=== PATIENT | female | born 1985 | race African-American/Black ===

== ENCOUNTER 2022-07-06 11:17 | Emergency (ER) | payer BC, SELFPAY ==
[2022-07-06 11:34] VITALS: BP 129/91; PULSE 122; RESP 16; TEMP 37.3; O2SAT 100
--- NOTE | 2022-07-06 12:33 | ED.GENADULT ---
HPI - General Adult General Chief complaint: Unspecified Stated complaint: Fall, Left Side Body Pain Time Seen by Provider: 07/06/22 12:33 Source: patient Mode of arrival: ambulatory Limitations: no limitations History of Present Illness HPI narrative: 37y/o female presented for c/o left hip/side pain after injury yesterday. States she fell down 7 steps yesterday, no LOC or head injury. Pt is ambulatory. Denies numbness, tingling or weakness of extremity. Rates pain 10/10. Took ibuprofen for pain. No distress. Patient also presented with bodyaches, cough, headache, for 3 days. Requested flu swab. Hx HTN. Related Data Allergies Allergy/AdvReac Type Severity Reaction Status Date / Time No Known Allergies Allergy Verified 07/06/22 11:49 Review of Systems Review of Systems: CONSTITUTIONAL: Denies body aches, fever, chills EYES: Denies visual changes CARDIOVASCULAR: Denies chest pain, palpitations, or edema. RESPIRATORY: Denies cough or dyspnea. GASTROINTESTINAL: Denies abdominal pain, nausea, vomiting, or diarrhea. SKIN: Denies rash, itching, or wounds. MUSCULOSKELETAL:per HPI NEUROLOGIC: Denies headache, numbness, tingling, or weakness. All systems reviewed & are unremarkable except as noted in HPI and below PMFSH Comments At time of signature, I have reviewed and agree with nursing past medical, surgical, social and family history unless otherwise noted. Please see nursing chart for further information. There is no relevant family history pertinent to the presenting complaint Exam Narrative: GENERAL: Well-appearing, CHEST: Speaks in full sentences. No respiratory distress. HEART: Regular rate and rhythm. Normal and equal peripheral pulses. EXTREMITIES: pain with light palpation to left upper posterior leg, left abd/flank, right paraspinal area of L3-5. Pain to left hip and upper thigh with internal rotation of LLE. Pt tolerated full external rotation of LLE without pain. Pt is ambulatory. LLE has normal strength and sensation, limited range of motion, endorses pain with movement. no edema or ecchymosis, No open wounds or obvious deformity; pulse palpable and equal bilaterally, skin warm, dry, pink. Capillary refill less than 3 seconds. SKIN: Warm, dry, no rash. NEURO: Alert and oriented x3. PSYCH: Normal mood and affect Course Course Emergency Course: Patient is aware of diagnosis, understands and agrees to treatment plan. Anticipatory guidance given. Patient agrees to follow-up as directed and is aware of reasons to seek care at the emergency department. Portions of this record may have been created with voice recognition software Level of Care: Express Care Visit Vital Signs Vital signs: Vital Signs Temperature 99.1 F 07/06/22 11:34 Pulse Rate 122 H 07/06/22 11:34 Respiratory Rate 16 07/06/22 11:34 Blood Pressure 129/91 H 07/06/22 11:34 Pulse Oximetry 100 07/06/22 11:34 Oxygen Delivery Room Air 07/06/22 11:34 Temperature 99.1 F 07/06/22 11:34 Pulse Rate 122 H 07/06/22 11:34 Respiratory Rate 16 07/06/22 11:34 Blood Pressure 129/91 H 07/06/22 11:34 Pulse Oximetry 100 07/06/22 11:34 Oxygen Delivery Room Air 07/06/22 11:34 Reviewed Medical Decision Making MDM Narrative Medical decision making narrative: Imaging not indicated at this time based on PE. flu neg. Advised supportive measures and signs/symptoms to go to the ER. Pt is appropriate for outpt treatment and f/u. Differential Diagnosis Differential Diagnosis: musculoskeletal pain, contusion, fracture, influenza, viral infection Vital Signs Vital Signs: Vital Signs Temperature 99.1 F 07/06/22 11:34 Pulse Rate 122 H 07/06/22 11:34 Respiratory Rate 16 07/06/22 11:34 Blood Pressure 129/91 H 07/06/22 11:34 Pulse Oximetry 100 07/06/22 11:34 Oxygen Delivery Room Air 07/06/22 11:34 Temperature 99.1 F 07/06/22 11:34 Pulse Rate 122 H 07/06/22 11:34 Respiratory Rate 16
== END 2022-07-06 12:56 | disposition home or self-care (01) ==
PROVIDERS: Emergency Provider Nurse Practitioner Family; PCP Family Medicine
DX: M25.552 Pain in left hip (principal); M79.652 Pain in left thigh; R10.9 Unspecified abdominal pain; M54.50 Low back pain, unspecified; I10 Essential (primary) hypertension
CPT/HCPCS: 87804; 99203; G0463

== ENCOUNTER 2022-12-01 10:31 | Emergency (ER) | payer BC, OTHER, SELFPAY ==
--- NOTE | 2022-12-01 10:35 | ED.URI ---
HPI - URI/Sore Throat General Stated Complaint: Sore Throat Time Seen by Provider: 12/01/22 10:55 Source: patient and RN notes reviewed Mode of arrival: ambulatory Limitations: no limitations History of Present Illness HPI Narrative: 37-year-old female presents concern for scratchy throat since Monday. She reports a headache as well. Reports her daughter has strep throat. She denies fever, aches, chills, sweats. MD elicited complaint: sore throat Related Data Home Medications Medication Instructions Recorded Confirmed nifedipine 20 mg capsule 20 mg PO DAILY 12/01/22 12/01/22 Allergies Allergy/AdvReac Type Severity Reaction Status Date / Time No Known Allergies Allergy Verified 12/01/22 11:02 Review of Systems Review of Systems: CONSTITUTIONAL: Denies malaise, chills, sweats, or fever. EYES: Denies visual changes, redness, or discharge. ENT: Denies rhinorrhea, congestion, sinus pain, otalgia. Reports sore throat. CARDIOVASCULAR: Denies chest pain, palpitations, or edema. RESPIRATORY: Reports cough. Denies dyspnea. GASTROINTESTINAL: Denies abdominal pain, nausea, vomiting, diarrhea SKIN: Denies rash or itching. MUSCULOSKELETAL: Denies myalgia. NEUROLOGIC: Reports headache. All systems reviewed & are unremarkable except as noted in HPI and below PMFSH Comments At time of signature, agree with nursing past medical, surgical, social and family history. There is no relevant family history pertinent to the presenting complaint Exam Narrative: GENERAL: Well-appearing, well-nourished, and in no acute distress. HEAD: Normocephalic EYES: PERRLA, conjunctivae clear ENT: Nares clear, turbinates edematous and erythematous, clear discharge. Mucous membranes moist. TM pearly ventura with dull light reflex bilaterally; no tragal tenderness. Oropharynx not erythematous without lesions. Tonsils not enlarged and without exudate, no drooling, no hoarseness, no trismus, uvula midline. NECK: Supple. No lymphadenopathy CHEST: Clear to auscultation, breath sounds equal. No wheezing, rhonchi, rales, or stridor. No respiratory distress, speaks in full sentences. HEART: Regular rate and rhythm. No murmur heard. SKIN: Warm, dry, no rash. NEURO: Alert and oriented x3. PSYCH: Normal mood and affect Course Course Emergency Course: Patient is aware of diagnosis, understands and agrees to treatment plan. Anticipatory guidance given. Patient agrees to follow-up as directed and is aware of reasons to seek care at the emergency department. Portions of this record may have been created with voice recognition software Level of Care: Express Care Visit Vital Signs Vital signs: Reviewed. MDM - URI/Sore Throat MDM Narrative Medical decision making narrative: Differential diagnosis considered: Syed virus, strep pharyngitis, allergic rhinitis, upper respiratory tract infection, sinusitis, rhinosinusitis, nasopharyngitis. viral pharyngitis, otitis media, otitis externa, pneumonia, bronchitis, viral cough syndrome, viral syndrome, and influenza. Exam findings show no acute concerns or changes; patient is non-toxic appearing and is in no distress. Patient is appropriate for outpatient treatment and follow-up. Lab Data Attestation: I reviewed the patient's lab results. Critical Care Time Critical Care Time Critical Care Time: No Discharge Plan Discharge Clinical Impression: Sore throat Patient Disposition: Home, Self-Care Condition: Stable Instructions: Pharyngitis (ED) Additional Instructions: Your rapid strep swab was negative today at [facility]. A throat culture will be sent to the laboratory for further testing. If the test is positive, you will receive a phone call within 48 hours and an appropriate antibiotic will be initiated at that time. Your symptoms are likely due to allergies or a viral illness, which is not treated with antibiotics. These symptoms can be present for up to a few weeks. -Alternate Tylenol and M
[2022-12-01 10:49] VITALS: BP 154/85; PULSE 88; RESP 16; TEMP 36.4; O2SAT 100
== END 2022-12-01 11:14 | disposition home or self-care (01) ==
PROVIDERS: Emergency Provider Nurse Practitioner; PCP Family Medicine
DX: J02.0 Streptococcal pharyngitis (principal); I10 Essential (primary) hypertension
CPT/HCPCS: 87081; 87147; 87880; 99213; G0463

== ENCOUNTER 2023-03-26 08:06 | Emergency (ER) | payer BC, SELFPAY ==
[2023-03-26 08:19] VITALS: BP 160/75; PULSE 81; RESP 16; TEMP 36.3; O2SAT 99
--- NOTE | 2023-03-26 08:51 | ED.GENADULT ---
HPI - General Adult General Chief complaint: Urogenital-Female Stated complaint: vaginal issue Source: patient Mode of arrival: ambulatory Limitations: no limitations History of Present Illness HPI narrative: Patient presents for evaluation of vaginal irritation for the last week. She thought she had a yeast infection so started using Monistat. She discontinued use as she was menstruating. Her symptoms now persist. She reports vaginal pruritis but has not noticed any discharge. No fever, chills, nausea, vomiting, urinary symptoms. She is sexually active with one male partner, never using condoms. She is not aware of him experiencing any symptoms. . She is not using contraception. Related Data Home Medications Medication Instructions Recorded Confirmed nifedipine 20 mg capsule 20 mg PO DAILY 12/01/22 03/26/23 Allergies Allergy/AdvReac Type Severity Reaction Status Date / Time Sulfa (Sulfonamide Allergy Severe Other Verified 03/26/23 08:44 Antibiotics) Review of Systems Review of Systems: CONSTITUTIONAL: Denies fever, chills, or sweats. EYES: Denies visual changes, redness, or discharge. ENT: Denies rhinorrhea, congestion, sore throat, or otalgia. CARDIOVASCULAR: Denies chest pain, palpitations, or edema. RESPIRATORY: Denies cough or dyspnea. GASTROINTESTINAL: Denies abdominal pain, nausea, vomiting, or diarrhea. GENITOURINARY: Reports vaginal irritation and itching. Denies vaginal bleeding/discharge. Denies dysuria or hematuria. SKIN: Denies rash or itching. MUSCULOSKELETAL: Denies back pain, joint pain, or myalgia. NEUROLOGIC: Denies headache, numbness, dizziness, or weakness. PSYCHIATRIC: Denies anxiety or depression. [facility] Past Medical History Medical History No pertinent past medical history Surgical History Surgical History No pertinent past surgical history Family History Family History Mother Family history non-contributory Social History Social History Substance use: never Living arrangements: with family Gender identity (if verbalized by the patient): Female Spiritual care concerns: No Exam Narrative: GENERAL: Well-appearing, well-nourished, and in no acute distress. HEAD: Normocephalic, atraumatic. EYES: PERRLA and EOMI. ENT: Nares clear, no rhinorrhea or epistaxis. Mucous membranes moist. Oropharynx without tonsillar hypertrophy exudate or other lesions. Bilateral TMs pearly ventura nonbulging NECK: Supple. No adenopathy or masses. No carotid bruits or JVD CHEST: Clear to auscultation. No respiratory distress. No wheezes rales or rhonchi HEART: Regular rate and rhythm. No murmur heard. Normal peripheral pulses. ABDOMEN: Soft, nontender, nondistended, normal active bowel sounds. GENITAL: no external genital lesions. No adnexal tenderness. No CMT. Small amount of milky white discharge in vaginal vault EXTREMITIES: Normal range of motion. No edema. SKIN: Warm, dry, no rash. NEURO: No focal deficits. Alert and oriented x3. PSYCH: Normal mood and affect. Course Course Emergency Course: this is a 37-year-old female who presented for evaluation vaginal irritation and itching. We discuss waiting for test results verses treating empirically today. She would like to be treated for gonorrhea, chlamydia, trich, BV and vaginal candidiasis. Therapies ordered as requested. Follow up with primary provider and go to the ER for worsening symptoms. Pt in agreement with plan of care. Level of Care: Express Care Visit Vital Signs Vital signs: Vital Signs Temperature 36.3 C L 03/26/23 08:19 Pulse Rate 81 03/26/23 08:19 Respiratory Rate 16 03/26/23 08:19 Blood Pressure 160/75 H 03/26/23 08:19 Pulse Oximetry 99
[2023-03-26] MEDS: cefTRIAXone 500 MG, LIDOCAINE HCL 1% LOCAL INJ 1 ML IM (08:56)
== END 2023-03-26 09:03 | disposition home or self-care (01) ==
PROVIDERS: Emergency Provider Nurse Practitioner; PCP Family Medicine
DX: N76.0 Acute vaginitis (principal); Z72.51 High risk heterosexual behavior
CPT/HCPCS: 81003; 81025; 87070; 87491; 87591; 87661; 96372; 99214; G0463; J0696

== ENCOUNTER 2024-10-23 11:33 | Outpatient (CLI) | payer BC, SELFPAY ==
--- NOTE | ~2024-10-23 | US_ITS ---
EXAMINATION: US pelvic complete w TV DATE: 10/23/2024 11:58 INDICATION: Hypertrophy of uterus. TECHNIQUE: Multiple transabdominal and transvaginal sonographic images of the pelvis were obtained. COMPARISON: None. FINDINGS: TRANSABDOMINAL ULTRASOUND: The uterus measures 9.1 x 5.5 x 5.5 cm. There is no free fluid in the pelvis. TRANSVAGINAL ULTRASOUND: The endometrial complex measures 11 mm in thickness. There are 1.0 cm and 2.7 cm intramural fibroids. The right ovary measures 2.3 x 2.6 x 1.7 cm. The left ovary measures 1.9 x 2.3 x 2.6 cm. There is no rmal vascular flow in the ovaries. IMPRESSION: 1. Uterine fibroids. Reviewed, dictated and finalized at location A. [facility] IMPRESSION: 1. Uterine fibroids.
== END 2024-10-23 11:34 | disposition home or self-care (01) ==
LOC: GOSHIMG 11:33
PROVIDERS: PCP Obstetrics & Gynecology; Visit Provider Obstetrics & Gynecology
DX: N85.2 Hypertrophy of uterus (principal); N92.0 Excessive and frequent menstruation with regular cycle; D25.9 Leiomyoma of uterus, unspecified
CPT/HCPCS: 76830; 76856

== ENCOUNTER 2025-03-17 15:00 | Outpatient (CLI) | payer BC, SELFPAY ==
--- NOTE | ~2025-03-17 | MM_ITS ---
EXAMINATION: MM screening [facility] BI w fabiano INDICATION: Asymptomatic, referred for screening mammogram COMPARISON: None available TECHNIQUE: Digital Breast Tomosynthesis CC, MLO views of Both breasts were obtained with computer-ai ded detection to assist in interpretation of the study. FINDINGS: The breasts are heterogeneously dense, which may obscure small masses. There are 2 adjacent masses in the outer central and retroareolar right breast at middle depth cente red at 3.2 cm and 3.4 cm posterior to the nipple respectively. Elsewhere, there are no mammographic features of malignancy. IMPRESSION: 1. Right breast masses. 2. No evidence of malignancy in the Left breast. RECOMMENDATION: Right breast Diagnostic mammogram with true lateral, appropriate spot compression views and an ultras ound. BI-RADS Category 0: Incomplete: Needs additional imaging evaluation. Reviewed, dictated and finalized at location B. IMPRESSION: 1. Right breast masses. 2. No evidence of malignancy in the Left breast. RECOMMENDATION: Right breast Diagnostic mammogram with true lateral, appropriate spot compressi on views and an ultrasound. BI-RADS Category 0: Incomplete: Needs additional imaging evaluation.
--- OUTSIDE RECORDS SUMMARY | 2025-03-17 15:04 | XMS_ITS | Clinical Summary ---
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 Name Role Phone Unavailable Primary Care Provider Unavailabl e Social History Tobacco Use Types Packs/Day Years Used Date Smoking Tobacco: Never Assessed Comments Unknown Sex and Gender Information Value Date Recorded Sex Assigned at Not on file Legal Sex Female 10:17 AM [employer] Gender Identity Not on file Sexual Orientation Not on file Plan of Treatment Health Maintenance Due Date Last Done Comments Hepatitis C Virus (HCV) Screening 1984 Pap Smear 2005 Cervical Cancer Screening (CCS) 2014 HPV/Cotest 2014 Influenza Immunization (#1) 2024 SARS-COV-2 Immunization ( season) 2024 11/01/2020 Discussion re Starting/Frequency of Mammograms 2024 Respiratory Syncytial Virus (RSV) Immunization (Adult) (1 - 1-dose 75+ series) 2059 Hepatitis B Immunization Completed 002, 03/11/2002, 02/06/2002 DTaP/Tdap/Td Immunization Discontinued 2015, 08/28/2015, 04/15/1994, Additional history exists TdaP Immunization Completed 12/07/2015, 08/28/2015 Meningococcal Immunization (ACWY) Aged Out No longer eligible based on patient's age to complete this topic Pneumococcal Immunization Combined Aged Out No longer eligible based on patient's age to complete this topic Rotavirus Immunization Aged Out No lo nger eligible based on patient's age to complete this topic
--- OUTSIDE RECORDS SUMMARY | 2025-03-17 15:04 | XMS_ITS | Clinical Summary ---
Author Organization [facility] Address [address] [place] [address] Care Team Providers Care Roguer Name Role Phone Tasha Iverson DO Unavailable [phone] Teresita Conrad MCNEAL MD Primary Care Prov ider Allergies Active Allergy Reactions Criticality Noted Date Comments Sulfur Hives 07/12/2024 Medications lisinopril (PRINIVIL) 20 MG tabletIndications :Essential hypertension TAKE 1 TABLET(20 MG) BY MOUTH DAILY 90 tablet 3 09/26/2024 Active ferrous sulfate, 65 mg elemental, 325 (65 FE) MG tablet Take 1 tablet (325 mg total) by mouth daily with breakfast. Take 650 every other day Active Active Problems Problem Noted Date Diagnosed Date Anemia 09/05/2024 Assessment & Plan (09/11/2024 8:13 AM ACCOUNTING SYSTEM EXPERT): Chronic. Improving. Recent hospitalization for anemia, asymptomatic. Status post 1 PRBC. Status post IV iron infusion. CT A/P with no acute findings. DC with iron every other day X 3 days. -Reports no gross bleeding or symptoms of lightheadedness/dizziness. -Medications: Iron 325 mg p.o. every other day -Patient reports not having any constipation -Gynecology appointment 10/01/2024 -Previously discussed monthly periods, bleeds for 4-7 days, occasionally heavy -Discussed with patient consideration for GI referral as well. However, patient would like to start with gynecology -Repeat CBC today to ensure no drop in hemoglobin -Follow-up in 3 months for repeating CBC and iron panel Heart murmur 03/09/2023 Assessment & Plan (07/12/2024 11:20 AM ACCOUNTING SYSTEM EXPERT): Originally found by stitch separator. Not currently established with cardiology -Of of the echo completed on 04/05/2023 with EF 50-55%, borderline concentric left ventricular hypertrophy, mild mitral and tricuspid regurgitation -PE today with clear bilateral lung sounds, trace bilateral lower extremity edema, and grade 2 systolic murmur -Will work on risk stratification, see above Essential hypertension 07/29/2020 Assessment & Plan (09/11/2024 8:17 AM ACCOUNTING SYSTEM EXPERT): Chronic. Controlled. Asymptomatic at this time. History of preeclampsia in 2015. Started on nifedipine at that time. Reported nifedipine XL causes leg cramps and on previous physical exam bilateral trace pitting edema, which has since resolved since d/c. - BP: 138/82 - Goal of < 140/90 per JNC8 guidelines - Current medications: Lisinopril 20 mg p.o. daily -Tubes ligation in 2019 - Discussed DASH diet / Na reduction - Discussed increasing physical activity, averaging 150 min / week of moderate exercise - Continued to encourage moderation of ETOH use and smoking cessation - Discussed that hypertension increases risk for cardiovascular events, renal impairment, and stroke - Risk stratification: BP Uncontrolled, hx of HLD not on any medication at this time, Body mass index is 29.27 kg/m ., ex smoker Assessment & Plan (07/12/2024 11:17 AM ACCOUNTING SYSTEM EXPERT): Chronic. Uncontrolled. Asymptomatic at this time. History of preeclampsia in 2015. Started on nifedipine at that time. Of note, since PCP left was out of medication for 1 month until getting refills from [facility]. Patient reports that the medication dose was increased on 03/2024. - BP: (!) 150/70, with a repeat of 150/70 - Goal of < 140/90 per JNC8 guidelines - Current medications: Nifedipine XL 60 mg p.o. daily - Discussed DASH diet / Na reduction - Discussed increasing physical activity, averaging 150 min / week of moderate exercise - Continued to encourage moderation of ETOH use and smoking cessation - Discussed that hypertension increases risk for cardiovascular events, renal impairment, and stroke - Risk stratification: BP Uncontrolled, hx of HLD not on any medication at this time, Body mass index is 28.86 kg/m ., ex smoker -She is a patient changing medication because per patient, nifedipine XL causes leg cramps and on physical exam bilateral trace pitting edema -Start lisinopril 20 mg p.o. daily -Labs ordered: BMP, albumin creatinine ratio - F/u in 4 weeks for blood pressure recheck Hyperlipidemia, unspecified hyperlipidemia type 07/29/2020 Assessment & Plan (07/12/2024 11:18 AM ACCOUNTING SYSTEM EXPERT): Chronic. Controlled. ASCVD risk score of 1%. No history of DM, MT, or stroke. - Last lipid panel 2022: TChol 176, triglycerides 62, HDL 58, LDL 104 - Current medication: None - D/w pt importance of reducing carbohydrates and total calories - D/w pt use of 'myfitnesspal' and 'myplate' for assistance in decreasing total caloric intake. - Recommended at least 150 min / week of moderate intensity exercise - Avoidance of regular soda, juices, and alcohol. Cautious of sugar in coffee and teas. -Repeat lipid panel Resolved Problems Problem Noted Date Diagnosed Date Resolved Date Preventative health care 09/22/2021 Preventative health care 07/29/2020 Encounters Date Type Department Care Team Description 01/17/2025 9:47 PM CDT - 01/18/2025 12:49 AM CDT Emergency [facility] [place] [address] Ray Villegas MD Abdominal Pain Discharge Disposition: Home or Self Care (Routine Discharge) 01/17/2025 Travel 01/08/2025 7:59 AM CDT - 01/08/2025 11:59 PM CDT Hospital Encounter [facility] [place] [address] Conrad Aldana MD Discharge Disposition: Home or Self Care (Routine Discharge) 01/08/2025 7:20 AM CDT Office Visit [facility] - [place], [address] [place] [phone] Conrad Aldana MD Follow Up (Patient states no new concerns ) 01/08/2025 Results Follow-Up [facility] - [place] [address], [address] [place] [phone] Conrad Aldana MD FERRITIN, IRON SAT PANEL (IRON,IBC,%SAT), CBC W/DIFF AUTOMATED 01/08/2025 Orders Only [facility] [address] [place] [address] Conrad Aldana MD 01/08/2025 Travel from Last 3 Months Immunizations Immunization Administration Dates Next Due Dtp 04/15/1994, 7,03/12/1985,1984,1984 HPV 1984 Hepatitis B Pediatric 08/12/2002,03/11/2002,01/26 MMR 06/04/1993,09/20/1985 Opv 04/15/1994, 7,03/12/1985,1984,1984 PFIZER COVID-19 (ORIGINAL FORMULATION, PURPLE CAP) mRNA, LNP-S, PF, 30 MCG/0.3 ML DOSE 08/22/2021 Tdap (Generic) 12/07/2015,08/28/2015,11/22/2011 Family History Medical History Relation Comments Diabetes Father Hypertension Father HYPOTHYROIDISM Mother Hypertension Mother Relation Status Comments Father Mother Social History Tobacco Use Types Packs/Day Years Used Date Smoking Tobacco: Former Cigars Passive Smoke Exposure: Past Smokeless Tobacco: Never Tobacco Cessation:Counseling Given: No Comments:2 DAILY X 6 YEARS Alcohol Use Standard Drinks/Week Comments Yes 0 (1 standard drink = 0.6 oz pur e alcohol) ocass [facility] Utilities Answer Date Recorded In the past 12 months has e electric, gas, oil, or water company threatened to shut off services in your home? No 09/06/2024 Humiliation, Afraid, Rape, and Kick questionnair e Answer Date Recorded Within the last year, have y ou been afraid of your partner or ex-partner? No 09/06/2024 Within the last year, have y ou been humiliated or emotionally abused in other ways by your partner or ex-partner? No Within the last year, have y ou been kicked, hit, slapped, or otherwise physically hurt by your partner or ex-partner? No 09/06/2024 Within the last year, have y ou been raped or forced to have any kind of sexual activity by your partner or ex-partner? No 09/06/2024 Social Connection and Isolat ion Panel [NHANES] Answer Date Recorded In a typical week, how many times do you talk on the phone with family, friends, or neighbors? More than three times a week 09/06/2024 How often do you get togethe r with friends or relatives? More than three times a week 09/06/2024 How often do you attend chur or zoroastrian services? More than 4 times per year 09/06/2024 Do you belong to any clubs o r organizations such as synagogue groups, unions, fraternal or athletic groups, or school groups? Yes 09/06/2024 How often do you attend meet ings of the clubs or organizations you belong to? More than 4 times per year 09/06/2024 Are you , , di vorced, , never , or living with a partner? Never 09/06/2024 Overall Financial Resource Strain (CARDIA) Answe r Date Recorded How hard is it for you to pa y for the very basics like food, housing, medical care, and heating? Not hard at all 09/06/2024 PHQ-2 Answer Date Recorded Patient Health Questionnaire-2 Score 0 01/08/2025 [employer] Occupat ional Health - Occupational Stress Questionnaire Answer Date Recorded Do you feel stress - tense, restless, nervous, or anxious, or unable to sleep at night because your mind is troubled all the time - these days? Not at all 09/06/2024 Hunger Vital Sign Answer Date Recorded Within the past 12 months, y ou worried that your food would run out before you got the money to buy more. Never true 09/06/19 25 Within the past 12 months, t he food you bought just didn't last and you didn't have money to get more. Never true 09/06/2024 PRAPARE - Transportation Answer Date Re corded In the past 12 months, has l ack of transportation kept you from medical appointments or from getting medications? No 08/28 In the past 12 months, has l ack of transportation kept you from meetings, work, or from getting things needed for daily living? No 09/06/2024 Housing Stability Vital Sign Answer Rolf e Recorded In the last 12 months, was t here a time when you were not able to pay the mortgage or rent on time? Yes 09/06/2024 In the past 12 months, how m any times have you moved where you were living? 0 09/06/2024 At any time in the past 12 m [facility], were you homeless or living in a senior care (including now)? No 09/06/2024 Comments No Sex and Gender Information Value Date Recorded Sex Assigned at Not on file Legal Sex Female 7:59 PM CDT Gender Identity Not on file Sexual Orientation Not on file Occupation Industry Job Start Date Job End Date Not on file Not on file Not on file Not on file Last Filed Vital Signs Vital Sign Reading Time Taken Comments Blood Pressure 121/82 01/18/2025 12:00 AM CDT Pulse 74 01/18/2025 12:46 AM CDT Temperature 37.2 C (98.9 F) 01/18/2025 12:39 AM CDT Respiratory Rate 18 01/18/2025 12:39 AM CDT Oxygen Saturation 99% 01/18/2025 12:46 AM CDT Inhaled Oxygen Concentration - - Weight 74.8 kg (165 lb) 01/17/2025 9:34 PM CDT Height 167.6 cm (5' 6) 01/17/2025 9:34 PM CDT Body Mass Index 26.63 01/17/2025 9:34 PM CDT Plan of Treatment Upcoming Encounters Date Type Department Care Team (Late st Contact Info) Description 07/11/2025 7:20 AM ACCOUNTING SYSTEM EXPERT Office Visit [facility] - [place] [address] , [address] [place] [address] Teresita VII, Conrad Jackson MD [address] [place] [address], [address] [address] Health Maintenance Due Date Last Done Comments Cervical Cancer Screening Pap Smear (Age 30 to 64) Every 3 Years 1984 Hepatitis C 2002 HPV Vaccines (1 - 3-dose SCDM series) 2011 1984 Cervical Cancer Screening Pap with HPV Testing (Age 30 to 64) Every 5 Years 2014 Cervical Cancer Screening with HPV 2014 COVID-19 Vaccine ( season) 2024 08/22/2021, 11/01/2020 Mammogram Screening 2024 Annual Physical 07/12/2025 07/12/2024, 02/25, 09/22/2021, Additional history exists DTaP, Tdap and Td Vaccines (5 - Td or Tdap) 12/06/2025 12/07/2015, 08/28/2015, 11/22/2011, Additional history exists Hepatitis B Vaccines Completed 08/12/2002, 03/11/2002, 02/06/2002 PHQ-2 (Physician [place]) Completed 01/08/2025 Meningococcal B Vaccine Aged Out No l onger eligible based on patient's age to complete this topic Meningococcal Vaccine Aged Out No she jessica eligible based on patient's age to complete this topic Pneumococcal Vaccine: Pediatrics (0 to 5 Years) and At-Risk Patients (6 to 49 Years) Aged Out No longer eligible based on patient's age to complete this topic RSV Immunizations Under 20 Months Aged Out No longer eligible based on patient's age to complete this topic Procedures Procedure Name Priority Date/Time Associated Diagnosis Comments URINE BACTERIA CULTURE Routine 11:20 PM CDT HC URINALYSIS AUTO W/O MICRO STAT 01/17/2025 11:20 PM CDT ELECTROCARDIOGRAM REPORT Routine 025 11:01 PM CDT ECG 12-LEAD Routine 01/17/2025 10:56 PM CDT XR CHEST PORTABLE STAT 01/17/2025 10: [address] ABD+PEL W CON STAT 01/17/2025 10:1 8 PM CDT CHORIONIC GONADOTROPIN HCG QL STAT 01/17/2025 10:00 PM CDT LACTIC ACID W REFLEX (SEPSIS) STAT 01/17/2025 10:00 PM CDT CK (CPK) STAT 01/17/2025 10:00 PM CDT MAGNESIUM STAT 01/17/2025 10:00 PM CDT LIPASE STAT 01/17/2025 10:00 PM CDT COMPREHENSIVE METABOLIC PANEL STAT 01/17/2025 10:00 PM CDT CBC W/DIFF AUTOMATED STAT 01/17/2025 10:00 PM CDT CORONAVIRUS (COVID 19) STAT 9:59 PM CDT TROPONIN, QUANT Routine 01/17/2025 9:59 PM CDT INFLUENZA A & B STAT 01/17/2025 9:57 PM CDT HC URINALYSIS AUTO W/O MICRO STAT 01/17/2025 9:57 PM CDT POCT URINE (BACK OFFICE) STAT 01/17/2025 9:54 PM CDT CBC W/DIFF AUTOMATED Routine 01/08/2025 8:08 AM CDT Iron deficiency anemia, unspecified iron deficiency anemia type IRON SAT PANEL (IRON,IBC,%SAT) Routine 01/08/2025 8:08 AM CDT Iron deficiency anemia, unspecified iron deficiency anemia type FERRITIN Routine 01/08/2025 8:08 AM CDT Iron deficiency anemia, unspecified iron deficiency anemia type from Last 3 Months Results * URINALYSIS (01/17/2025 11:20 PM CDT) Only the most recent of2 resultswithin the time period is included. SPECIMEN TYPE URINE STRAIGHT CATH 01/17/2025 11:21 PM CDT [facility] COLOR (U) LIGHT YELLOW 01/17/2025 11:35 PM CDT [facility] TRANSPARENCY CLEAR 01/17/2025 11:35 PM CDT [facility] SPECIFIC GRAVITY (U) 1.022 1.001 - 1.030 01/17/2025 11:35 PM CDT [facility] U PH 7.0 5.0 - 9.0 01/17/2025 11:35 PM CDT [facility] LEUKOCYTES (U) NEGATIVE NEGATIVE 01/17/2025 11:35 PM CDT [facility] NITRITES NEGATIVE NEGATIVE 01/17/2025 11:35 PM CDT [facility] PROTEIN RANDOM (U) NEGATIVE <30 MG/DL 01/17/2025 11:35 PM CDT [facility] GLUCOSE (U) NORMAL NORMAL MG/DL 01/17/2025 11:35 PM CDT [facility] KETONES MG/DL (U) NEGATIVE NEGATIVE MG/DL 01/17/2025 11:35 PM CDT [facility] UROBILINOGEN NORMAL NORMAL MG/DL 01/17/2025 11:35 PM CDT [facility] BILIRUBIN (U) NEGATIVE NEGATIVE MG/DL 01/17/2025 11:35 PM CDT [facility] BLOOD (U) NEGATIVE NEGATIVE 01/17/2025 11:35 PM CDT [facility] MUCUS RARE /LPF 01/17/2025 11:35 PM CDT [facility] RBC/HPF 1 <6 /HPF 01/17/2025 11:35 PM CDT [facility] SQUAMOUS EPITHELIALS RARE /HPF 01/17/2025 11:35 PM CDT [facility] URINE, STRAIGHT CATH 01/17/2025 11:20 PM CDT us Ray Villegas MD URINE ORDERABLES Final Result Performing Organization Address [facility] Co de Phone Number [facility] [address] [place] [address], [place] [phone] * CULTURE URINE (01/17/2025 11:20 PM CDT) SPEC DESCRIPTION URINE STRAIGHT CATH 01/17/2025 11:47 PM CDT [facility] SPECIAL REQUESTS NO SPECIAL REQUEST 01/17/2025 11:47 PM CDT [facility] CULTURE RESULT NO GROWTH 2 DAYS 01/20/2025 8:26 AM CDT [facility] URINE SPECIMEN OBTAINED BY SINGLE CATHETERIZATION OF URINARY BLADDER / Unknown 01/17/2025 11:20 PM CDT 01/18/2025 2:35 AM CDT us Ray Villegas MD MICROBIOLOGY - GENERAL ORDERAB LES Final Result Performing Organization Address City/[facility]/ZIP Co de Phone Number [facility] [address] [place] [address], [place] [phone] * EKG Reading (01/17/2025 11:01 PM CDT) Narrative Ray Villegas MD - 01/17/2025 11:01 PM CDT Ray Villegas MD 01/17/2025 11:49 PM EKG Reading Date/Time: 01/17/2025 11:01 PM Performed by: Ray Villegas MD Authorized by: Ray Villegas MD Interpreted by ED physician Comparison: compared with previous ECG from 04/16/2022 Rhythm: sinus rhythm Rate: normal BPM: 71 Comments: Normal sinus rhythm. Heart rate 71. Normal axis Norval normal QRS nonspecific ST-T wave changes. Compared to EKG from 04/16/2022 Rhythm strip are interpreted 2256 Normal sinus rhythm. Heart rate 71. No ectopy us Ray Villegas MD [facility] Final Result * ECG 12 lead (01/17/2025 10:56 PM CDT) 01/17/2025 10:5 6 PM CDT Narrative [facility] - 01/18/2025 8:24 AM CDT [facility] [address] Test Date: 2025-01-17 Pat Name: MARGARITA HUERTA Department: 41 Room: Gender: Female Quiller Hand: [id number] : 1985 Requested By: LAKIA KAPOOR Order Number: [id number] Reading MD: Edgar Ventura Measurements Intervals [place] Rate: 71 P: 54 SC: 191 QRS: 29 QRSD: 73 T: 31 QT: 382 QTc: 415 Interpretive Statements SINUS RHYTHM Compared to ECG 04/16/2022 09:14:37 No significant changes Other ischemic changes, not STEMI Preliminary EKG Interpretation by Ray Villegas M.D. Procedure Note Edgar Ventura MD - 01/18/2025 [facility] [address] [place] [address] Test Date: 2025-01-17 Pat Name: MARGARITA HUERTA Department: 41 Room: Gender: Female Quiller Hand: [id number] : 1985 Requested By: LAKIA KAPOOR Order Number: [id number] Reading MD: Edgar Ventura Measurements Intervals [place] Rate: 71 P: 54 SC: 191 QRS: 29 QRSD: 73 T: 31 QT: 382 QTc: 415 Interpretive Statements SINUS RHYTHM Compared to ECG 04/16/2022 09:14:37 No significant changes Other ischemic changes, not STEMI Preliminary EKG Interpretation by Ray Villegas M.D. us Lakia Kapoor SPARERIBS TRIMMER ECG ORDERABLES Final Result [facility] RAD * XR CHEST PORTABLE (01/17/2025 10:27 PM CDT) Anatomical Region Laterality Modality Chest Radiographic Natividad ging 01/17/2025 10:3 2 PM CDT Impressions 01/17/2025 10:32 PM CDT IMPRESSION: ======== 1. No acute cardiopulmonary findings. Referred By: Interpreted By: Ray Spangler MD, 01/17/2025 10:32 PM Narrative 01/17/2025 10:32 PM CDT [address] [address] Examination: Chest x-ray 1 view Exam Date/Time: 01/17/2025 10:08 PM Reason For Exam: weakness/cough Diffuse pain Comparison: None Technique: Single AP view of the chest was obtained. Findings: Heart size is within normal limits. Pulmonary vasculature is within normal limits. There is no large pleural effusion or pneumothorax. There is no focal infiltrate or consolidative change. ======== Procedure Note Ray Spangler MD - 01/17/[address] [address] Examination: Chest x-ray 1 view Exam Date/Time: 01/17/2025 10:08 PM Reason For Exam: weakness/cough Diffuse pain Comparison: None Technique: Single AP view of the chest was obtained. Findings: Heart size is within normal limits. Pulmonary vasculature iswithin normal limits. There is no large pleural effusion or pneumothorax.There is no focal infiltrate or consolidative change. ======== IMPRESSION: ======== 1. No acute cardiopulmonary findings. Referred By: Interpreted By: Ray Spangler MD, 01/17/2025 10:32 PM Ray Villegas MD GENERAL IMAGING Final Result * CT ABD+PEL W IV CON ONLY (01/17/2025 10:18 PM CDT) Anatomical Region Laterality Modality Abdomen Computed Tomogra phy 01/17/2025 10:2 1 PM CDT Impressions 01/17/2025 10:24 PM CDT IMPRESSION: ===== 1. Subtle heterogeneous enhancement of some areas of left renal cortex compared to the right. Infection is main consideration. Clinical correlation with urinalysis recommended. Follow-up recommended after appropriate course of therapy to ensure resolution and exclude other etiologies. 2. Punctate nonobstructing right renal pelvic calcification. 3. Tiny umbilical hernia contains only fat. Referred By: Interpreted By: Ray Spangler MD, 01/17/2025 10:21 PM Narrative 01/17/2025 10:24 PM CDT [address] [address] EXAMINATION: CT Abdomen and Pelvis with contrast EXAM DATE/TIME: 01/17/2025 10:07 PM REASON FOR EXAM: abdominal pain Abdominal pain, nausea, decreased appetite since Monday COMPARISON: CT abdomen and pelvis 09/06/2024 TECHNIQUE: Axial CT images of the abdomen and pelvis are obtained following uneventful intravenous administration of 100 cc Isovue-370. Subsequent coronal and sagittal reformatted sequences are created for evaluation. A dose lowering technique was used for this procedure, which may include, but is not limited to, dose reduction technique, automated exposure control, iterative reconstruction, ALARA (As Low As Reasonably Achievable), or Image Gently techniques. FINDINGS: Minimal atelectasis in the posterior left lung base. Lung bases otherwise clear. No pleural effusion. Heart size normal. No pericardial effusion. The liver and spleen are normal in size and surface contour. No abnormal enhancing hepatic lesions. Bladder is contracted. Pancreas and adrenal glands unremarkable. Kidneys demonstrate symmetric uptake of contrast agent. Subtle asymmetric heterogeneous enhancement of some areas of left renal cortex compared to the right. No perinephric stranding or fluid collections. Infection is a consideration. There is a punctate nonobstructing right renal pelvic calcification. Abdominal aorta normal in caliber throughout. The bowel is normal in caliber. No evidence of bowel obstruction. Appendix normal. Tiny umbilical hernia contains only fat. Urinary bladder is decompressed with smooth borders. No free fluid in the pelvis. Uterus and adnexal structures have unremarkable CT appearance. Bone level imaging shows no destructive osseous lesions. ===== Procedure Note Ray Spangler MD - 01/17/[address] [address] EXAMINATION: CT Abdomen and Pelvis with contrast EXAM DATE/TIME: 01/17/2025 10:07 PM REASON FOR EXAM: abdominal pain Abdominal pain, nausea, decreased appetite since Monday COMPARISON: CT abdomen and pelvis 09/06/2024 TECHNIQUE: Axial CT images of the abdomen and pelvis are obtainedfollowing uneventful intravenous administration of 100 cc Isovue-370.Subsequent coronal and sagittal reformatted sequences are created forevaluation. A dose lowering technique was used for this procedure, whichmay include, but is not limited to, dose reduction technique, automatedexposure control, iterative reconstruction, ALARA (As Low As ReasonablyAchievable), or Image Gently techniques. FINDINGS: Minimal atelectasis in the posterior left lung base. Lung basesotherwise clear. No pleural effusion. Heart size normal. No pericardialeffusion. The liver and spleen are normal in size and surface contour. No abnormalenhancing hepatic lesions. Bladder is contracted. Pancreas and adrenalglands unremarkable. Kidneys demonstrate symmetric uptake of contrastagent. Subtle asymmetric heterogeneous enhancement of some areas of leftrenal cortex compared to the right. No perinephric stranding or fluidcollections. Infection is a consideration. There is a punctatenonobstructing right renal pelvic calcification. Abdominal aorta normalin caliber throughout. The bowel is normal in caliber. No evidence ofbowel obstruction. Appendix normal. Tiny umbilical hernia contains onlyfat. Urinary bladder is decompressed with smooth borders. No free fluidin the pelvis. Uterus and adnexal structures have unremarkable CTappearance. Bone level imaging shows no destructive osseous lesions. ===== IMPRESSION: ===== 1. Subtle heterogeneous enhancement of some areas of left renal cortexcompared to the right. Infection is main consideration. Clinicalcorrelation with urinalysis recommended. Follow-up recommended afterappropriate course of therapy to ensure resolution and exclude otheretiologies. 2. Punctate nonobstructing right renal pelvic calcification. 3. Tiny umbilical hernia contains only fat. Referred By: Interpreted By: Ray Spangler MD, 01/17/2025 10:21 PM Lakia Kapoor NP CT Final Result * LACTIC ACID W REFLEX (SEPSIS) (01/17/2025 10:00 PM CDT) LACTIC ACID VENOUS 0.6 0.4 - 2.0 MMOL/L 01/17/2025 10:25 PM CDT [facility] 01/17/2025 10:0 0 PM CDT Lakia Kapoor NP LABORATORY Final Result [facility] [address] [place] [address], [place] [phone] * (ABNORMAL) COMPREHENSIVE METABOLIC PANEL (01/17/2025 10:00 PM CDT) [facility] GLUCOSE 103(H) 70 - 99 MG/DL 01/17/2025 10:25 PM CDT [facility] BUN 9 7 - 18 MG/DL 01/17/2025 10:25 PM CDT [facility] CREATININE S/P/B 0.89 0.55 - 1.02 MG/DL 01/17/2025 10:25 PM CDT [facility] SODIUM S/P/B 136 136 - 145 MMOL/L 01/17/2025 10:25 PM CDT [facility] POTASSIUM S/P/B 3.6 3.5 - 5.1 MMOL/L 01/17/2025 10:25 PM CDT [facility] CHLORIDE S/P/B 106 97 - 115 MMOL/L 01/17/2025 10:25 PM CDT [facility] CO2 24.3 21 - 32 MMOL/L 01/17/2025 10:25 PM CDT [facility] CALCIUM S/P/B 8.9 8.5 - 10.1 MG/DL 01/17/2025 10:25 PM CDT [facility] BILIRUBIN TOTAL S/P/B 0.4 0.2 - 1.2 MG/DL 01/17/2025 10:25 PM CDT [facility] Comment: THIS ASSAY IS NOT RECOMMENDED FOR PATIENTS UNDERGOING TREATMENT WITH ELTROMBOPAG DUE TO THE POTENTIAL FOR FALSELY ELEVATED RESULTS. TOTAL PROTEIN S/P/B 7.4 6.4 - 8.2 G/DL 01/17/2025 10:25 PM CDT [facility] ALBUMIN S/P/B 3.3(L) 3.4 - 5.0 G/DL 01/17/2025 10:25 PM CDT [facility] AST 10(L) 15 - 37 U/L 01/17/2025 10:25 PM CDT [facility] ALT 8(L) 14 - 55 U/L 01/17/2025 10:25 PM CDT [facility] ALKALINE PHOSPHATASE S/P/B 61 50 - 136 U/L 01/17/2025 10:25 PM CDT [facility] ANION GAP 5.7 2 - 10 MMOL/L 01/17/2025 10:25 PM CDT [facility] BUN CREATININE RATIO 10.1 6 - 26 01/17/2025 10:25 PM CDT [facility] A/G RATIO 0.8(L) 1.0 - 2.0 RATIO 01/17/2025 10:25 PM CDT [facility] GFR ESTIMATE 84(L) >90 ML/MIN/1.7 3 M2 01/17/2025 10:25 PM CDT [facility] Comment: NOTE: eGFR is not calculated for patients <18 years of age or gender unknown. This is an estimated GFR calculation using the new CKD EPI creatinine equation without race and so does not require a correction factor for race. This estimated GFR should not be used for calculating drug doses. 01/17/2025 10:0 0 PM CDT us Lakia Kapoor NP LABORATORY Final Result [facility] [address] [place] [address], * Qualitative HCG (01/17/2025 10:00 PM CDT) PREG SCREEN-SERUM NEGATIVE 01/17/2025 11:02 PM CDT [facility] 01/17/2025 10:0 0 PM CDT Ray Villegas MD LABORATORY Final Result [facility] [address] [place] [address], * (ABNORMAL) CBC W/DIFF AUTOMATED (01/17/2025 10:00 PM CDT) Only the most recent of2 resultswithin the time period is included. WBC 6.84 4.5 - 11.0 x10'3/uL 01/17/2025 10:12 PM CDT [facility] RBC 4.10(L) 4.20 - 5.40 x10'6/uL 01/17/2025 10:12 PM CDT [facility] HGB 10.4(L) 12.0 - 16.0 G/DL 01/17/2025 10:12 PM CDT [facility] HCT 33.3(L) 38.0 - 48.0 % 01/17/2025 10:12 PM CDT [facility] MCV 81.2 81.0 - 99.0 FL 01/17/2025 10:12 PM CDT [facility] MCH 25.4(L) 27.0 - 31.0 PG 01/17/2025 10:12 PM CDT [facility] MCHC 31.2(L) 32.0 - 36.0 G/DL 01/17/2025 10:12 PM CDT [facility] RDW 14.8(H) 11.5 - 14.5 % 01/17/2025 10:12 PM CDT [facility] PLT 227 130 - 400 x10'3/uL 01/17/2025 10:12 PM CDT [facility] MPV 10.4 9.3 - 12.2 FL 01/17/2025 10:12 PM CDT [facility] DIFFERENTIAL TYPE AUTOMATED DIFFERENTIAL 01/17/2025 10:12 PM CDT [facility] NEUTROPHILS % 63.8 % 01/17/2025 10:12 PM CDT [facility] LYMPHOCYTES % 23.5 % 01/17/2025 10:12 PM CDT [facility] MONOCYTES % 11.1 % 01/17/2025 10:12 PM CDT [facility] EOSINOPHILS 0.9 % 01/17/2025 10:12 PM CDT [facility] BASOPHILS 0.4 % 01/17/2025 10:12 PM CDT [facility] IMMATURE GRANS % 0.3 % 01/18/20 10:12 PM CDT [facility] ABS. NEUTROPHILS 4.36 1.80 - 7.70 x10'3/uL 01/17/2025 10:12 PM CDT [facility] ABS. LYMPHOCYTES 1.61 1.00 - 4.80 x10'3/uL 01/17/2025 10:12 PM CDT [facility] ABS. MONOCYTES 0.76 0.24 - 0.86 x10'3/uL 01/17/2025 10:12 PM CDT [facility] ABS. EOSINOPHILS 0.06 0.04 - 0.36 x10'3/uL 01/17/2025 10:12 PM CDT [facility] ABS. BASOPHILS 0.03 0.01 - 0.08 x10'3/uL 01/17/2025 10:12 PM CDT [facility] ABS. IMMATURE GRANULOCYTES 0.02 0.00 - 0.49 x10'3/uL 01/17/2025 10:12 PM CDT [facility] 01/17/2025 10:0 0 PM CDT us Lakia Kapoor SPARERIBS TRIMMER LABORATORY Final Result Performing Organization Address City/[facility]/ZIP Co de Phone Number [facility] [address] [place] [address], [place] [phone] * MAGNESIUM (01/17/2025 10:00 PM CDT) MAGNESIUM 2.2 1.8 - 2.4 MG/DL 01/17/2025 10:25 PM CDT [facility] 01/17/2025 10:0 0 PM CDT us Lakia Normanace [employer] LABORATORY Final Result Performing Organization Address [facility] Co de Phone Number [facility] [address] [place] [address], [place] [phone] * LIPASE (01/17/2025 10:00 PM CDT) LIPASE 22 13 - 75 UNITS/L 01/17/2025 10:25 PM CDT [facility] 01/17/2025 10:0 0 PM CDT us Lakia Normanace [employer] LABORATORY Final Result Performing Organization Address City/[facility]/ZIP Co de Phone Number [facility] [address] [place] [address], [place] [phone] * CK (CPK) (01/17/2025 10:00 PM CDT) CPK 52 21 - 215 U/L 01/17/2025 10:25 PM CDT [facility] 01/17/2025 10:0 0 PM CDT Lakia Kapoor NP LABORATORY Final Result Performing Organization Address City/[facility]/ZIP Co de Phone Number [facility] [address] [place] [address], * CORONAVIRUS (COVID 19) (01/17/2025 9:59 PM CDT) CORONAVIRUS SARS COV 2 RNA NEGATIVE NEGATIVE 01/17/2025 10:31 PM CDT [facility] Comment: NEGATIVE RESULTS DO NOT RULE OUT COVID 19 AND SHOULD NOT BE USED THE SOLE BASIS FOR TREATMENT OR PATIENT MANAGEMENT DECISIONS, INCLUDING INFECTION CONTROL DECISIONS. NEGATIVE RESULTS SHOULD BE CONSIDERED IN THE CONTEXT OF A PATIENT'S RECENT EXPOSURES, HISTORY AND THE PRESENCE OF CLINICAL SIGNS AND SYMPTOMS CONSISTENT WITH COVID 19. THE ID NOW COVID-19 2.0 TEST HAS BEEN AUTHORIZED BY THE FDA UNDER EAU FOR USE BY AUTHORIZED LABORATORIES. PERFORMED BY NUCLEIC ACID AMPLIFICATION FOR MOLECULAR QUALITATIVE DETECTION OF SARS-COV-2. SPECIMEN TYPE NASAL 01/17/2025 9:58 PM CDT [facility] NASAL STRUCTURE / Unknown 01/17/2025 9:59 PM CDT us Lakia Kapoor [employer] MICROBIOLOGY - GENERAL ORDERAB LES Final Result [facility] [address] [place] [address], [place] [phone] * TROPONIN, QUANT (01/17/2025 9:59 PM CDT) TROPONIN I HIGH SENSITIVITY 4 <54 ng/L 01/17/2025 10:35 PM CDT [facility] Comment: HIGH DOSES OF BIOTIN, TROPONIN-SPECIFIC AUTOANTIBODIES, AND ANTIBODY THERAPY CONTAINING HAMA MAY INTERFERE WITH THIS TEST RESULT. CORRELATION TO CLINICAL HISTORY AND PRESENTATION RECOMMENDED. 01/17/2025 9:59 PM CDT Ray Villegas MD LABORATORY Final Result [facility] [address] [place] [address], * INFLUENZA A & B (01/17/2025 9:57 PM CDT) SPECIMEN TYPE Negative for Group A Streptococci 01/17/2025 10:07 PM CDT [facility] INFLUENZA A NEGATIVE NEGATIVE 01/17/2025 10:30 PM CDT [facility] INFLUENZA B NEGATIVE NEGATIVE 01/17/2025 10:30 PM CDT [facility] Comment: Interpretation: Negative for Influenza A and B. A negative result does not exclude influenza virus infection. If influenza is circulating in your community, a diagnosis of influenza should be considered based on a patient's clinical presentation and empiric antiviral treatment should be considered, if indicated. If more conclusive testing is needed for hospitalized inpatients, follow-up confirmatory testing with RT-PCR requires a separate order. NASAL STRUCTURE / Unknown 01/17/2025 9:57 PM CDT us Lakia Kapoor NP MICROBIOLOGY - GENERAL ORDERAB LES Final Result [facility] [address] [place] [address], * POCT urine (01/17/2025 9:54 PM CDT) URINE HCG TEST NEGATIVE Internal Control: VALID 01/17/2025 9:54 PM CDT us Lakia Kapoor NP POINT OF CARE TEST ORDERABLES Final Result * (ABNORMAL) IRON SAT PANEL (IRON,IBC,%SAT) (01/08/2025 8:08 AM CDT) IRON 40(L) 50.0 - 170.0 MCG/DL 01/08/2025 11:11 AM CDT [facility] IRON BINDING CAPACITY 345 250 - 450 MCG/DL 01/08/2025 11:11 AM CDT [facility] IRON SATURATION 12(L) 20 - 55 % 11:11 AM CDT [facility] 01/08/2025 8:08 AM CDT Conrad MCNEAL MD LABORATORY Fi nal Result [facility] [address] [place] [address], [place] [phone] * (ABNORMAL) FERRITIN (01/08/2025 8:08 AM CDT) Pathologist [facility] FERRITIN 6.0(L) 8.0 - 388.0 NG/ML 01/08/2025 11:19 AM CDT [facility] 01/08/2025 8:08 AM CDT Conrad MCNEAL MD LABORATORY Fi nal Result [facility] [address] [place] [address], [place] [phone] from Last 3 Months Insurance BLUE [employer] BLUE [employer] Advance Directives * Full Code (Latest Code Status on File) Date Activated Date Inactivated Comments 09/05/2024 11:57 PM 09/07/2024 1:13 PM Care Teams Roguer Relationship Specialty Start Date End Date Teresita Conrad MCNEAL MD [address] [place] [id number] PCP - General FAMILY PRACTICE 07/12/24 Tasha Iverson DO [address] [place] [address] 10/09/19
== END 2025-03-17 15:01 | disposition home or self-care (01) ==
LOC: ANHIMG 15:01
PROVIDERS: PCP Family Medicine; Visit Provider Obstetrics & Gynecology
DX: Z12.31 Encounter for screening mammogram for malignant neoplasm of breast (principal)
CPT/HCPCS: 77063; 77067

== ENCOUNTER 2025-03-31 14:21 | Outpatient (CLI) | payer BC, SELFPAY ==
--- NOTE | ~2025-03-31 | US_ITS ---
Thyroid ultrasound. Clinical History: Goiter Findings: Real-time sonography of the thyroid gland was performed. The right lobe measures 5.9 x 1 0 .5, 1.6 cm. The left lobe measures 5.1 x 1.1 x 1.5 cm. The isthmus is 3 mm in AP diameter. 3 mm hypoechoic left thyroid lobe nodule present. Tiny parenchyma otherwise is homogeneous.. Impression: 3 mm left thyroid lobe nodule, of doubtful clinical significance. No further follow-up required.. Reviewed, dictated and finalized at location M. Impression: 3 mm left thyroid lobe nodule, of doubtful clinical significance. No further fo llow-up required..
--- NOTE | ~2025-03-31 | US_ITS ---
Pelvic ultrasound. Clinical History: Leiomyoma of uterus Technique: Realtime transabdominal and transvaginal scanning of the pelvis was performed. Color flow Doppler and Doppler spectral analysis were performed. Findings: The uterus is anteverted, and measures 7.3 x 5.6 x 5.8 cm. The endometrial stripe has a th ickness of routine mm. Fibroid towards the fundus measures 2.8 cm in diameter. Additional fibroid tow ards the fundus measures 3.1 cm in diameter. The right ovary measures 3.0 x 1.4 x 1.9 cm. No significant right ovarian or adnexal mass is seen. The left ovary measures 3.5 x 2.2 x 2.2 cm. No significant left ovarian or adnexal mass is seen. There is no evidence of free fluid in the cul de sac. Impression: Uterine fibroids, as detailed above. Reviewed, dictated and finalized at location . Impression: Uterine fibroids, as detailed above.
== END 2025-03-31 14:22 | disposition home or self-care (01) ==
LOC: MICIMG 14:22
PROVIDERS: PCP Obstetrics & Gynecology; Visit Provider Obstetrics & Gynecology
DX: D25.9 Leiomyoma of uterus, unspecified (principal); E04.1 Nontoxic single thyroid nodule
CPT/HCPCS: 76536; 76830; 76856

== ENCOUNTER 2025-04-17 11:31 | Outpatient (CLI) | payer BC, SELFPAY ==
--- NOTE | ~2025-04-17 | MMUS_ITS ---
EXAMINATION: MM diagnostic [facility] RT w fabiano, US breast RT limited HISTORY: Right breast masses TECHNIQUE: Additional 3-D tomosynthesis images of the right breast were performed and synthetic 2-D images were generated. CAD analysis was submitted and interpreted. High resolution limited right breast ultrasound was performed. COMPARISON: 03/17/2025 BREAST PARENCHYMAL COMPOSITION:Dense: The breasts are heterogeneously dense, which may obscure small masses. FINDINGS: MAMMOGRAPHIC FINDINGS: Spot compression views demonstrate at least 1 persistent low-density circumscribed mass in the subareolar region, measuring 7 mm. Possible additional lesion at the outer and upper right breast. No suspicious microcalcifications. ULTRASOUND: At the right subareolar region, there is a 7 mm oval, circumscribed, wider than tall hypoechoic solid mass. No posterior shadowing. There is an additional separate 7 mm similar appearing mass, also the right subareolar region. There is a similar-appearing 1.4 x 1.2 x 0.8 cm mass at the 12:00 position right breast, 3 cm from the nipple. There is a fourth mass at the 6:00 position right breast, 2 cm the nipple, measuring 8 mm in maximum diameter. IMPRESSION: 4 discrete mass lesions seen sonographically in the right breast, as detailed above, largest measuring 1.4 cm. Findings are most compatible with benign lesions such as fibroadenomas. Six-month follow-up ultrasound recommended to reassess. BI-RADS category 3, probably benign findings. Reviewed, dictated and finalized at [facility]. IMPRESSION: 4 discrete mass lesions seen sonographically in the right breast, as detailed above, largest measuring 1.4 cm. Findings are most compatible with benign lesio ns such as fibroadenomas. Six-month follow-up ultrasound recommended to reasses s. BI-RADS category 3, probably benign findings.
--- OUTSIDE RECORDS SUMMARY | 2025-04-17 12:08 | XMS_ITS | Clinical Summary ---
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
== END 2025-04-17 11:32 | disposition home or self-care (01) ==
PROVIDERS: PCP Obstetrics & Gynecology; Visit Provider Obstetrics & Gynecology
DX: R92.8 Other abnormal and inconclusive findings on diagnostic imaging of breast (principal)
CPT/HCPCS: 76642; 77061; 77065; G0279